=== PATIENT | female | born 1940 | race Caucasian/White ===

== ENCOUNTER 2017-11-25 16:11 | Inpatient (IN) | payer MEDICARE ==
[~2017-11-25] VITALS: Ht 162.6 cm; Wt 60.5 kg
--- NOTE | ~2017-11-25 | DS ---
PATIENT:EMA TURPIN :40 MEDICAL RECORD: [id number] DISCHARGE SUMMARY ADMISSION DATE: 11/25/17 DISCHARGE DATE: 11/28/17 DATE OF DISCHARGE: 11/28/2017 from the inpatient hospital. DISCHARGE DIAGNOSES: 1. Atrial fibrillation with rapid ventricular response. 2. Mitral regurgitation. 3. Cardiomyopathy. 4. Chronic diastolic congestive heart failure. 5. Diabetes. 6. Dyspnea. 7. Diverticulitis. CONSULTS THIS HOSPITALIZATION: Cardiology with Dr. Blankenship. HOSPITAL COURSE: Full H&P is located elsewhere on the chart on this 77-year-old female, who was admitted with shortness of breath and was found to be in atrial fibrillation with rapid ventricular response. She was started on a Cardizem drip and admitted to telemetry. Fingerstick blood sugars were monitored throughout her hospital stay with appropriate adjustment in medications as needed. She was seen in consult by cardiology and had a repeat echo with an EF of 35% to 40%, moderate tricuspid regurgitation, mild mitral regurgitation, and the RV systolic pressure estimated at greater than or equal to 52 mmHg. Heart rate was under good control on Cardizem. She was changed to oral medication and was started on Eliquis for anticoagulation. She was found with left-sided weakness and neglect, aphasia, and rapid ventricular response again on the monitor with AFib and was elected to transfer to [facility] for higher level of care. She was transferred on 11/28/2017 via ambulance for neuro evaluation with possible CVA. At least 30 minutes was spent in this discharge activity. TRANSINT:[id number] Voice Confirmation ID: [id number] DOCUMENT ID: [id number] Dictated By: LIZY CARLSON I have interviewed/examined the above patient and agree with these documented findings. VIKASH CURTIS MD at 1459 at 1459 CC: [id number] DICTATION DATE: 12/26/17 1514 [employer]PERVISOR [employer]: 12/27/17 1020 DIS IN 11/28/17 [facility] [address] [place] [address]
--- NOTE | ~2017-11-25 | EC ---
PATIENT:EMA TURPIN DATE OF SERVICE: 11/25/17 SEX: F MEDICAL RECORD: [id number] DATE OF : 40 LOCATION:D. D.211 AGE OF PATIENT: 77 ADMISSION DATE: 11/25/17 REFERRING PHYSICIAN: INTERPRETING PHYSICIAN: AI DELONG MD ECHOCARDIOGRAM REPORT ECHO CHARGES 4 ECHO COMPLETE CLINICAL DIAGNOSIS: A-FIB ECHOCARDIOGRAPHIC MEASUREMENTS (adult normal given) AC root (d.<3.7cm) 2.7 cm LV Septum d (<1.2 cm> 1.2 cm Valve Excursion 1.5 cm LV Septum (systole) 1.5 cm Left Atria (s.<4.0cm> 3.3 cm LVPW d(<1.2cm) 1.3 cm RV (d.<2.3cm) 1.9 cm LVPW (sytole) 1.7 cm LV diastole(<5.6CM) 4.3 cm MV E-F(>70mm/sec) cm LV systole 3.1 cm LVOT Diameter 1.5 cm MV exc.(>10mm) cm Est.ejection fraction (50-75%) % Pericardial Effusion Y DOPPLER: LVIT cm/sec A cm/sec E 133 cm/sec LA cm/sec RVSP 52.2 mmHg LVOT 115 cm/sec AOP1/2T m/s Asc. Ao 176 cm/sec RVOT 75.0 cm/sec RA cm/sec PA 107 cm/sec AV Gradient Peak 12.3 mmHg AV Mean 5.6 mmHg AV Area 0.9 cm MV Gradient Peak 9.2 mmHg MV Mean 2.7 mmHg MV Area cm COMMENTS: C.O.D. Biller: Lisha BAIOE Trimming Operator: 1 Dr. Smith TAPE# PACS DATE OF SERVICE: 11/26/2017 Adequate 2D echo, color flow, spectral Doppler, and M-mode. No LVH. LV is mildly globally hypo with a reduced EF. Estimated EF of 35% to 40%. Aortic valve sclerosis without stenosis by Doppler interrogation. The left atrium is normal at 3.3 cm. Mitral valve shows no prolapse. Mild MR. Right-sided chambers appear grossly normal. Moderate TR. RV systolic pressure is estimated at greater than or equal to 52 mmHg via the continuity equation. TRANSINT:[id number] Voice Confirmation ID: [id number] DOCUMENT ID: [id number] ECHOCARDIOGRAM REPORT [id number] EMA TURPIN 12/03/2017 Edited to correct date of service, dmm. AI DELONG MD at 1210 CC: [id number] DICTATION DATE: 11/30/17 1423 ANALYSIS LEAD: 11/30/17 1459 DIS IN 11/28/17 [place] [id number] [place] [id number]
[2017-11-25 16:48] LABS: BASOPHILS 0.5 % (0-2); EOSINOPHILS 2.9 % (0-7); HEMATOCRIT 46.8 % (36.0-48.0); HEMOGLOBIN 15.3 g/dL (12-16); IMMATURE GRANULOCYTES 0.2 % (0-5); LYMPHOCYTES 21.3 % (15-50); MCH 30.2 pg (26.0-34.0); MCHC 32.7 g/dL (31.0-37.0); MCV 92.3 fL (80.0-100.0); MEAN PLATELET VOLUME 9.8 fL (7.4-10.4); MONOCYTES 5.7 % (2-11); NEUTROPHILS 69.4 % (40-80); PLATELET COUNT 344 10x3/uL (130-400); RBC 5.07 10x6/uL (4.00-5.40); RDW 13.8 % (11.5-14.5); WBC 10.4 10x3/uL (4.8-10.8)
[2017-11-25 16:59] LABS: APTT 25.8 SECONDS (22.8-39.4); INR 0.86 (0.85-1.17); PROTIME 11.4 SECONDS (11.6-15.0)
[2017-11-25 17:06] LABS: ALBUMIN 4.8 g/dL (3.4-5.0); ALKALINE PHOSPHATASE 88 U/L (46-116); ALT (SGPT) 35 U/L (10-68); BILIRUBIN - TOTAL 0.35 mg/dL (0.2-1.3); CALC OSMOLALITY 284 mosm/kg (275-300); CALCIUM 10.3 mg/dL (8.5-10.1); CARBON DIOXIDE 26.4 mmol/L (21.0-32.0); CHLORIDE - SERUM 101 mmol/L (98-107); GLUCOSE 167 mg/dL (74-106); POTASSIUM - SERUM 3.8 mmol/L (3.5-5.1); PROTEIN - SERUM 8.4 g/dL (6.4-8.2); SODIUM 141 mmol/L (136-145); UREA NITROGEN 12 mg/dL (7-18); eGFR NON AFRICAN AMERICAN 57 mL/min (90-120)
[2017-11-25 17:12] LABS: APPEARANCE HAZY (CLEAR); COLOR YELLOW (YELLOW); NITRITE NEGATIVE (NEGATIVE); SPECIFIC GRAVITY 1.025 (1.005-1.020)
[2017-11-25 17:13] LABS: BACTERIA MODERATE /hpf (NONE SEEN); BILIRUBIN NEGATIVE (NEGATIVE); EPITHELIAL CELLS 0-5 /hpf (0-5); GLUCOSE NEGATIVE (NEGATIVE); KETONE NEGATIVE (NEGATIVE); MUCUS >1+ /lpf (NONE SEEN); PROTEIN 2+ mg/dL (NEGATIVE); RED CELLS - URINE 0-5 /hpf (0-5); UROBILINOGEN NORMAL (NORMAL)
[2017-11-25 17:14] LABS: CREATINE KINASE 46 UL (21-215); T4 THYROXIN - FREE 1.24 ng/dL (0.76-1.46); THYROID STIMULATING HORMONE 2.93 uIU/mL (0.36-3.74)
[2017-11-25 17:23] LABS: TROPONIN-I < 0.017 ng/mL (0.000-0.060)
[2017-11-26] VITALS: BP 131/68
[2017-11-26] MEDS ORDERED: GLUCOPHAGE1000 MG PO (00:11)
[2017-11-26] MEDS ORDERED: CENTRUM SILVER1 TA1 PO (00:12)
[2017-11-26] MEDS ORDERED: BAYER CHEWABLE81 MG PO (00:12)
[2017-11-26] MEDS ORDERED: FLAXSEED OIL1000 MG PO (00:13)
[2017-11-26] MEDS ORDERED: VITAMIN B-12500 MCG PO (00:13)
[2017-11-26 01:14] VITALS: BMI 21.6
[2017-11-26 06:10] VITALS: BP 122/52
[2017-11-26 07:49] VITALS: BP 122/58
[2017-11-26 08:23] VITALS: Ht 162.6 cm; Wt 60.5 kg
[2017-11-26 11:23] VITALS: BP 113/72
[2017-11-26 16:45] VITALS: BP 112/55
[2017-11-26 21:11] VITALS: BP 125/66
[2017-11-26] MEDS ORDERED: LISINOPRIL5 MG PO (22:59)
[2017-11-27 01:27] VITALS: BP 101/54
[2017-11-27 05:08] VITALS: BP 103/48
[2017-11-27 06:44] LABS: BASOPHILS 0.2 % (0-2); EOSINOPHILS 2.7 % (0-7); IMMATURE GRANULOCYTES 0.2 % (0-5); LYMPHOCYTES 20.2 % (15-50); MCH 29.5 pg (26.0-34.0); MCHC 32.2 g/dL (31.0-37.0); MCV 91.3 fL (80.0-100.0); MEAN PLATELET VOLUME 9.8 fL (7.4-10.4); MONOCYTES 9.3 % (2-11); NEUTROPHILS 67.4 % (40-80); WBC 8.8 10x3/uL (4.8-10.8)
[2017-11-27 06:51] LABS: HEMATOCRIT 36.9 % (36.0-48.0); HEMOGLOBIN 11.9 g/dL (12-16); PLATELET COUNT 272 10x3/uL (130-400); RBC 4.04 10x6/uL (4.00-5.40)
[2017-11-27 07:11] LABS: ANION GAP 14.3 mmol/L (8-16); CALCIUM 8.5 mg/dL (8.5-10.1); CARBON DIOXIDE 25.5 mmol/L (21.0-32.0); CREATININE - SERUM 1.1 mg/dL (0.6-1.3); POTASSIUM - SERUM 3.8 mmol/L (3.5-5.1)
[2017-11-27 08:07] VITALS: BP 101/53
[2017-11-27 11:22] VITALS: BP 142/68
[2017-11-27 15:25] VITALS: BP 136/66
[2017-11-27 20:58] VITALS: BP 103/44
[2017-11-28 05:19] VITALS: BP 104/59
[2017-11-28 07:18] LABS: BASOPHILS 0.2 % (0-2); EOSINOPHILS 1.8 % (0-7); HEMATOCRIT 37.8 % (36.0-48.0); HEMOGLOBIN 12.1 g/dL (12-16); IMMATURE GRANULOCYTES 0.2 % (0-5); LYMPHOCYTES 20.1 % (15-50); MCH 29.7 pg (26.0-34.0); MCV 92.6 fL (80.0-100.0); MEAN PLATELET VOLUME 9.9 fL (7.4-10.4); MONOCYTES 8.8 % (2-11); NEUTROPHILS 68.9 % (40-80); PLATELET COUNT 299 10x3/uL (130-400); RBC 4.08 10x6/uL (4.00-5.40); RDW 13.9 % (11.5-14.5); WBC 10.2 10x3/uL (4.8-10.8)
[2017-11-28 07:21] LABS: ANION GAP 15.5 mmol/L (8-16); CALCIUM 8.6 mg/dL (8.5-10.1); CARBON DIOXIDE 25.5 mmol/L (21.0-32.0)
[2017-11-28 07:22] LABS: CREATININE - SERUM 1.4 mg/dL (0.6-1.3)
[2017-11-28] MEDS ORDERED: ASPIRIN325 MG PO (08:14)
[2017-11-28] MEDS ORDERED: CARDIZEM CD240 MG PO (08:14)
[2017-11-28] MEDS ORDERED: ELIQUIS2.5 MG PO (08:14)
== END 2017-11-28 09:53 | disposition short-term general hospital (02) | DRG 309 ==
LOC: D.ER 16:11 → D.M2 19:24
PROVIDERS: Emergency Medicine; Family Medicine
DX: I48.91 Unspecified atrial fibrillation (principal); N39.0 Urinary tract infection, site not specified; I50.32 Chronic diastolic (congestive) heart failure; E11.65 Type 2 diabetes mellitus with hyperglycemia; I42.9 Cardiomyopathy, unspecified; Z72.0 Tobacco use